=== PATIENT | female | born 1935 | race Caucasian/White ===

== ENCOUNTER 2019-06-19 09:59 | Inpatient (IN) ==
[2019-06-19] MEDS ORDERED: Isovue-370 500 ML BOTTLE IVP ONE (10:45)
[2019-06-19] MEDS ORDERED: Morphine Sulfate 2 MG/ML SYRINGE IVP ONE (12:36)
[2019-06-19] MEDS ORDERED: *HR* Heparin 10,000 UNIT/10 ML VIAL IV PRN (12:54)
[2019-06-19] MEDS ORDERED: 0.9 % Sodium Chloride 250 ML IVC PRN (12:54)
[2019-06-19] MEDS ORDERED: 0.9 % Sodium Chloride 1,000 ML PRIME SCH (13:00)
[2019-06-19 13:08] LABS: Basophils % 0.1 %; Hematocrit 28.9 % (35.3-44.9); Hemoglobin 9.3 g/dL (11.5-15.4); Immature Granulocytes % 0.6 % (0-4); Lymphocytes # 1.1 K/mcL (0.6-4.6); Lymphocytes % 10.9 %; Mean Corpuscular HGB Conc 32.2 g/dL (31.6-35.5); Mean Corpuscular Hemoglobin 32.7 pg (28.0-33.3); Mean Corpuscular Volume 101.8 fL (83.0-100.0); Mean Platelet Volume 11.6 fL (9.4-12.4); Monocytes # 2.1 K/mcL (0.0-1.3); Monocytes % 20.6 %; Platelet Count 152 K/mcL (140-400); Red Blood Count 2.84 M/mcL (3.82-4.97); Segmented Neutrophils % 67.8 %; White Blood Count 10.3 K/mcL (4.3-11.1)
[2019-06-19 13:25] LABS: Platelet Estimate Normal (Normal)
[2019-06-19 13:26] LABS: Anisocytosis 1+ (Not Present); Potassium 4.6 mEq/L (3.5-5.1)
[2019-06-19 13:30] LABS: Bilirubin,Urine Negative (Negative); Blood,Urine Moderate (Negative); Clarity,Urine Clear (Clear); Color,Urine Yellow (Yellow); Glucose,Urine (UA) Normal (Normal); Ketones,Urine Negative (Negative); Leukocyte Esterase,Urine Small (Negative); Nitrite,Urine Negative (Negative); Protein,Urine >=300 mg/dL (Neg-Trace); Specific Gravity,Urine 1.009 (1.010-1.025); Urobilinogen,Urine Normal (Normal)
[2019-06-19 13:33] LABS: Bacteria,Urine Moderate per hpf (None-Few); Hyaline Casts,Urine None Seen per lpf (None-Few); RBC,Urine 15-30 per hpf (0-3); Squamous Epithelial Cell,Urine None Seen per lpf (None-Few); WBC,Urine 15-30 per hpf (0-3)
[2019-06-19] MEDS ORDERED: *HR* FentaNYL (PF) 100 MCG/2 ML VIAL ONE (13:52)
[2019-06-19] MEDS ORDERED: Ondansetron 4 MG/2 ML VIAL ONE (13:52)
[2019-06-19] MEDS ORDERED: *HR* Propofol 200 MG/20 ML VIAL IVP ONE (13:52)
[2019-06-19] MEDS ORDERED: *HR* Succinylcholine 200 MG/10 ML VIAL IVP ONE (13:52)
[2019-06-19] MEDS ORDERED: Lidocaine -MPF 2% 2 ML VIAL ONE (13:52)
[2019-06-19] MEDS ORDERED: Lidocaine -MPF 4% 5 ML AMPUL ONE (13:52)
[2019-06-19] MEDS ORDERED: *HR* PHENYLEPHRINE 1,000 MCG/10 ML SYRINGE IVP ONE (13:58)
[2019-06-19] MEDS ORDERED: *HR* HYDROcodone/Acet 5/325 mg TABLET PO PRN (14:06)
[2019-06-19] MEDS ORDERED: Naloxone 0.4 MG/ML INJ IVP PRN ×2 (14:06→16:39)
[2019-06-19] MEDS ORDERED: CeFAZolin Syr 2,000MG/20 ML 2,000 MG/20 ML SYRINGE IVPB ONE (14:09)
[2019-06-19] MEDS ORDERED: D5% in Water 1,000 ML IVC PRN (14:10)
[2019-06-19] MEDS ORDERED: Dextrose Gel 15 GM/37.5 ML TUBE PO PRN ×2 (14:10)
[2019-06-19] MEDS ORDERED: *HR* Dextrose 50 % in Water (Syg) 50 ML SYRINGE IVP PRN (14:10)
[2019-06-19 15:06] LABS: Hepatitis B Surface Antibody 3.12 mIU/mL
[2019-06-19 15:16] LABS: Hepatitis B Surface Antigen Nonreactive (Nonreactive)
[2019-06-19 15:45] LABS: Hepatitis B Core IgM Nonreactive (Nonreactive)
[2019-06-19] MEDS ORDERED: *HR* Labetalol 20 MG/4 ML SYRINGE IVP ONE (16:05)
[2019-06-19] MEDS: *HR* Labetalol 20 MG/4 ML SYRINGE IVP PRN ×2 (16:06→16:18)
[2019-06-19] MEDS ORDERED: *HR* OxyCODONE Immed Rel 5 MG TABLET PO PRN (16:39)
[2019-06-19] MEDS ORDERED: *HR* OxyCODONE/APAP 5/325 TABLET PO PRN (16:39)
[2019-06-19] MEDS ORDERED: 0.9 % Sodium Chloride 1,000 ML ONE (17:33)
[2019-06-19] MEDS ORDERED: Insulin LISPRO 300 UNITS/3 ML VIAL SQ SCH (18:00)
[2019-06-19] MEDS ORDERED: cefTRIAXone 1,000 MG in 0.9 % Sodium Chloride Mini Bag 100 ML IVPB SCH (21:00)
[2019-06-20 04:57] LABS: Basophils % 0.1 %; Hematocrit 27.5 % (35.3-44.9); Hemoglobin 9.1 g/dL (11.5-15.4); Immature Granulocytes % 0.6 % (0-4); Lymphocytes # 1.2 K/mcL (0.6-4.6); Lymphocytes % 10.5 %; Mean Corpuscular HGB Conc 33.1 g/dL (31.6-35.5); Mean Corpuscular Hemoglobin 33.3 pg (28.0-33.3); Mean Corpuscular Volume 100.7 fL (83.0-100.0); Mean Platelet Volume 11.7 fL (9.4-12.4); Monocytes # 2.3 K/mcL (0.0-1.3); Monocytes % 20.2 %; Neutrophils # 7.8 K/mcL (1.6-8.9); Platelet Count 146 K/mcL (140-400); Red Blood Count 2.73 M/mcL (3.82-4.97); Red Cell Distribution Width 21.2 % (11.5-14.5); Segmented Neutrophils % 68.6 %; White Blood Count 11.4 K/mcL (4.3-11.1)
[2019-06-20 05:11] LABS: Calcium 8.5 mg/dL (8.6-10.3); Potassium 4.1 mEq/L (3.5-5.1)
[2019-06-20 05:43] LABS: Anisocytosis 1+ (Not Present); Platelet Estimate Normal (Normal)
[2019-06-20] MEDS ORDERED: Metoprolol XL (24 HR) Succ 25 MG TAB.ER.24H PO SCH (09:00)
[2019-06-20] MEDS ORDERED: cefTRIAXone 1,000 MG in Water for inj. (sterile) 10 ML IVP SCH (09:00)
[2019-06-20] MEDS ORDERED: Ondansetron ODT 4 MG TAB.RAPDIS PO PRN (17:35)
[2019-06-20] MEDS ORDERED: VERAPAMIL HCL 200 MG PO SCH (18:00)
[2019-06-20] MEDS: cefTRIAXone 1,000 MG in Water for inj. (sterile) 10 ML IVP SCH (19:03)
[2019-06-20] MEDS: Acyclovir 200 MG CAPSULE PO SCH (20:10)
[2019-06-21 06:33] LABS: Basophils % 0.1 %; Hematocrit 29.3 % (35.3-44.9); Hemoglobin 9.8 g/dL (11.5-15.4); Immature Granulocytes % 0.8 % (0-4); Lymphocytes # 1.2 K/mcL (0.6-4.6); Lymphocytes % 10.1 %; Mean Corpuscular HGB Conc 33.4 g/dL (31.6-35.5); Mean Corpuscular Volume 98.7 fL (83.0-100.0); Monocytes # 2.3 K/mcL (0.0-1.3); Monocytes % 19.2 %; Platelet Count 184 K/mcL (140-400); Red Blood Count 2.97 M/mcL (3.82-4.97); Red Cell Distribution Width 21.2 % (11.5-14.5); Segmented Neutrophils % 69.8 %
[2019-06-21 06:36] LABS: Neutrophils # 8.4 K/mcL (1.6-8.9)
[2019-06-21 06:55] LABS: Calcium 9.2 mg/dL (8.6-10.3); Potassium 4.1 mEq/L (3.5-5.1)
[2019-06-21] MEDS ORDERED: 0.9 % Sodium Chloride 250 ML IVC PRN (07:02)
[2019-06-21] MEDS ORDERED: 0.9 % Sodium Chloride 1,000 ML PRIME SCH (07:15)
[2019-06-21] MEDS: Acyclovir 200 MG CAPSULE PO SCH (08:21)
[2019-06-21] MEDS: cefTRIAXone 1,000 MG in Water for inj. (sterile) 10 ML IVP SCH (08:22)
[2019-06-21] MEDS ORDERED: levoFLOXacin 500 MG TABLET PO ONE (09:33)
[2019-06-21 11:52] VITALS: BP 150/54
== END 2019-06-21 14:08 | disposition home health service (06) | DRG 480 ==
LOC: EMEROOARM 09:59 → 2ANU 09:59 → SUATTDRO 15:21 → 3NENU 20:24
PROVIDERS: ADMIT Internal Medicine; ATTEND Internal Medicine